=== PATIENT | male | born 1995 | race Caucasian/White ===

== ENCOUNTER 2020-05-29 00:29 | Emergency (ER) | payer SELFPAY | END 2020-05-29 01:23 | disposition home or self-care (01) | LOC: MED 00:29 | DX: Z53.21 Procedure and treatment not carried out due to patient leaving prior to being seen by health care provider (principal) ==

== ENCOUNTER 2020-06-30 12:55 | Emergency (ER) | payer BC ==
--- NOTE | 2020-06-30 13:03 | NUR ---
1st call for patient, no answer.
--- NOTE | 2020-06-30 13:11 | NUR ---
2nd call for patient, no answer.
--- NOTE | 2020-06-30 13:20 | NUR ---
PATIENT LEFT WITHOUT BEING SEEN BY DR. Mccartney. NO FURTHER CARE PROVIDED FOR PATIENT.
== END 2020-06-30 13:20 | disposition left against medical advice (07) ==
LOC: MED 12:55
DX: Z53.21 Procedure and treatment not carried out due to patient leaving prior to being seen by health care provider (principal)